=== PATIENT | male | born 1945 | race African-American/Black ===

== ENCOUNTER 2025-04-02 10:25 | Emergency (ER) | payer OTHER ==
[~2025-04-02 10:25] MED LIST: Iopamidol 370 76% 100 ML VIAL ONE
[2025-04-02 10:56] LABS: INR-International Normal Ratio 0.9; PTT 29.6 sec (22.9-36.1); Prothrombin Time 12.7 sec (12.0-14.7)
[2025-04-02 11:09] LABS: ALT (SGPT) 25 U/L (Less than 45); AST (SGOT) 31 U/L (11-34); Albumin 4.3 g/dL (3.1-4.5); Alkaline Phosphatase 73 U/L (40-110); Anion Gap 14 mmol/L (10-20); BUN (Urea Nitrogen) 12 mg/dL (8.4-25.7); Bilirubin, Total 0.6 mg/dL (0.3-1.2); Calc. Creatinine Clearance 0 mL/min (70-130); Calcium 9.4 mg/dL (7.8-10.44); Carbon Dioxide 26 mmol/L (23-31); Chloride 104 mmol/L (98-107); Globulin 3.5 g/dL (2.4-3.5); Glucose 112 mg/dL (83-110); Lipase 33 U/L (8-78); Potassium 4.1 mmol/L (3.5-5.1); Sodium 140 mmol/L (136-145)
[2025-04-02 11:13] LABS: Hematocrit 48.2 % (42.0-52.0); Hemoglobin 15.1 g/dL (14.0-18.0); MDiff Complete? YES; Mean Corpuscular Hemoglobin 28.0 pg (27.0-31.0); Mean Corpuscular Volume 89.6 fl (78.0-98.0); Platelet Adequacy Comment Appears Adequate; Platelet Count 181 10x3/uL (130-400); Red Blood Cell (RBC) Count 5.38 mill/uL (4.70-6.10); White Blood Cell (WBC) Count 3.4 10x3/uL (4.8-10.8)
[2025-04-02] MEDS ORDERED: Acetaminophen 325 MG TAB ONE (11:23)
[2025-04-02 11:57] LABS: Glucose, Urine (Dipstick) Negative (Negative); Leukocyte Negative (Negative); Protein, Urine (Dipstick) Negative (Neg-Trace); Specific Gravity, Urine 1.010 (1.005-1.030)
[2025-04-02 12:05] LABS: Cocaine Metabolite Screen Negative (Negative); THC/Cannabinoid Screen PRELIM POSITIVE (Negative); Tricyclic Screen Negative (Negative)
[2025-04-02 12:11] LABS: Bacteria/HPF Rare-Few HPF (None Seen); CAUTI Indications for Culture Pelvic or flank pain; RBC/HPF 0-3 HPF (0-3); WBC/HPF None Seen HPF (0-3)
[2025-04-02 12:12] LABS: Urine Culture Reflex No No
== END 2025-04-02 12:10 | disposition home or self-care (01) ==
LOC: MADERS 10:25
DX: S39.012A Strain of muscle, fascia and tendon of lower back, initial encounter (principal); K76.89 Other specified diseases of liver; R31.29 Other microscopic hematuria; D72.819 Decreased white blood cell count, unspecified; V44.5XXA Car driver injured in collision with heavy transport vehicle or bus in traffic accident, initial encounter; Y92.415 Exit ramp or entrance ramp of street or highway as the place of occurrence of the external cause
CPT/HCPCS: 70450; 71260; 72125; 74177; 80053; 80306; 80307; 81001; 83690; 85025; 85610; 85730; 86850; 86900; 86901; 93005; 94760; Q9967